=== PATIENT | female | born 1980 | race African-American/Black ===

== ENCOUNTER 2016-12-19 01:27 | Emergency (ER) | payer MEDICAID ==
[~2016-12-19] VITALS: Ht 160 cm; Wt 83.4 kg
[~2016-12-19 01:27] MED LIST: PREN1TAB27 PO
[2016-12-19 01:28] VITALS: BP 174/125
[2016-12-19] MEDS ORDERED: BACITRACIN ZINC OINT 500U/GM, 0.9 GM ONE (01:51)
[2016-12-19] MEDS ORDERED: SULFAMETH./TRIMETHOPRIM DS 800MG/160MG TABLET ONE (02:07)
[2016-12-19] MEDS ORDERED: IBUPROFEN 200 MG TABLET ONE (02:07)
[2016-12-19] MEDS ORDERED: SUBOXONE PO (02:15)
[2016-12-19] MEDS ORDERED: SULFAMETH./TRIMETHOPRIM DS 800MG/160MG TABLET PO ONE (02:30)
[2016-12-19] MEDS ORDERED: IBUPROFEN 200 MG TABLET PO ONE (02:30)
== END 2016-12-19 03:03 ==
LOC: ED 02:44
DX: S41.111D Laceration without foreign body of right upper arm, subsequent encounter (principal); L08.9 Local infection of the skin and subcutaneous tissue, unspecified; X58.XXXD Exposure to other specified factors, subsequent encounter; Y92.89 Other specified places as the place of occurrence of the external cause; Y99.8 Other external cause status
CPT/HCPCS: 99283

== ENCOUNTER 2018-11-01 02:16 | Emergency (ER) | payer MEDICAID ==
[~2018-11-01] VITALS: Ht 170.2 cm; Wt 72.0 kg
[~2018-11-01 02:16] MED LIST changes: +SUBOXONE PO
[2018-11-01 02:19] VITALS: BP 164/102
--- NOTE | 2018-11-01 02:36 | NUR ---
CALLED [facility] ABOUT PT. AND THEY REPORT TO TREAT PT. UNLESS OB CONCERNS ARISE.
--- NOTE | 2018-11-01 02:55 | NUR ---
PT IN [facility]; AWAITING ERP. PT FAMILY AT .
--- NOTE | 2018-11-01 03:28 | NUR ---
PT CAME OUT OF ROOM INTO PHYSICIAN AREA AND STATES "I'M LEAVING. I'M TIRED OF WAITING TO BE SEEN. I'M GONNA GO TO ANOTHER HOSPITAL." PT ENCOURAGED TO STAY, BUT PT STATES "I'M NOT WAITING ANY LONGER". PT AND FAMILY WALKED OUT INTO LOBBY AND LEFT.
== END 2018-11-01 03:36 | disposition left against medical advice (07) ==
LOC: ED 03:26
DX: K12.2 Cellulitis and abscess of mouth (principal); Z53.21 Procedure and treatment not carried out due to patient leaving prior to being seen by health care provider

== ENCOUNTER 2018-11-01 08:16 | Emergency (ER) | payer MEDICAID ==
[~2018-11-01] VITALS: Ht 170.2 cm; Wt 72.6 kg
--- NOTE | 2018-11-01 08:31 | NUR ---
LABOR AND DELIVERY AT BEDSIDE FOR HEART TONES.
[2018-11-01] MEDS ORDERED: BENZOCAINE AEROSOL SPRAY 20%, 60ML ONE (08:41)
[2018-11-01] MEDS ORDERED: CETACAINE 50ML TP ONE (09:00)
[2018-11-01 09:12] VITALS: BP 188/105
--- NOTE | 2018-11-01 09:15 | NUR ---
PT TRANSPORTED VIA WHEELCHAIR IN NAD TO L&D FOR FURTHER EVAL
--- NOTE | 2018-11-01 09:43 | NUR ---
prior to transfer up to L&D, patient ambulating safely in room, POC discussed with Jerel Quinones, L&D unit aware of patient's HTN, patient's child helped by Jerel Quinones and DELISA Bennett.
== END 2018-11-01 09:44 | disposition home or self-care (01) ==
LOC: ED 09:38
DX: O9A.212 Injury, poisoning and certain other consequences of external causes complicating pregnancy, second trimester (principal); K04.7 Periapical abscess without sinus; O16.2 Unspecified maternal hypertension, second trimester; O99.332 Smoking (tobacco) complicating pregnancy, second trimester; Z3A.23 23 weeks gestation of pregnancy
CPT/HCPCS: 41800; 99283

== ENCOUNTER 2018-11-01 09:31 | Outpatient (CLI) | payer MEDICAID ==
[2018-11-01 10:18] LABS: MICROSCOPIC INDICATED
[2018-11-01 10:51] LABS: AMPHETAMINE SCREEN, URINE Positive (Negative); BARBITURATE SCREEN, URINE Negative (Negative); BENZODIAZEPINE SCREEN, URINE Negative (Negative); CANNABINOID SCREEN, URINE Negative (Negative); COCAINE SCREEN, URINE Negative (Negative); METHADONE SCREEN, URINE Negative (Negative); OPIATE SCREEN, URINE Negative (Negative)
== END 2018-11-01 10:00 | disposition home or self-care (01) ==
LOC: LDOP 09:31
PROVIDERS: ATTEND Obstetrics & Gynecology
DX: O10.912 Unspecified pre-existing hypertension complicating pregnancy, second trimester (principal); S02.5XXD Fracture of tooth (traumatic), subsequent encounter for fracture with routine healing; Z3A.23 23 weeks gestation of pregnancy; X58.XXXD Exposure to other specified factors, subsequent encounter
CPT/HCPCS: 80307; 81001; 87086

== ENCOUNTER 2018-12-31 19:01 | Emergency (ER) | payer MEDICAID ==
[2018-12-31] MEDS ORDERED: OXYTOCIN 30U/ 0.9% NaCL 500ML 500 ML ONE (19:13)
[2018-12-31] MEDS ORDERED: MISOPROSTOL 200 MCG TABLET ONE (19:22)
== END 2018-12-31 19:17 | disposition home or self-care (01) ==
LOC: ED 19:11
DX: O34.219 Maternal care for unspecified type scar from previous cesarean delivery (principal); Z3A.33 33 weeks gestation of pregnancy; Z37.0 Single live birth
CPT/HCPCS: 99283

== ENCOUNTER 2018-12-31 19:31 | Inpatient (IN) | payer MEDICAID ==
[~2018-12-31] VITALS: Ht 170.2 cm; Wt 70.9 kg
[2018-12-31] MEDS: OXYTOCIN 30U/ 0.9% NaCL 500ML 500 ML IV SCH ×5 (19:33→23:51)
[2018-12-31] MEDS: LACTATED RINGERS 1,000 ML IV SCH (19:41)
[2018-12-31] MEDS ORDERED: METHYLERGONOVINE 0.2 MG/ML IM PRN (20:00)
[2018-12-31] MEDS ORDERED: MISOPROSTOL 200 MCG TABLET PR PRN (20:00)
[2018-12-31] MEDS ORDERED: LACTATED RINGERS 1,000 ML IVBOLUS PRN (20:00)
[2018-12-31] MEDS ORDERED: LABETALOL 5MG/ML, 20ML IVPush STA (20:05)
[2018-12-31 20:23] LABS: ALANINE AMINOTRANSFERASE 19 U/L (12-78); ALBUMIN 2.3 g/dL (3.4-5.0); ANION GAP 7 mmol/L (5-15); CALCIUM 7.8 mg/dL (8.5-10.1); CHLORIDE 114 mmol/L (98-107)
[2018-12-31 20:26] LABS: ALKALINE PHOSPHATASE 198 U/L (45-117); BILIRUBIN,TOTAL 0.2 mg/dL (0.2-1.0); CREATININE 0.81 mg/dL (0.55-1.02); TOTAL PROTEIN 5.8 g/dL (6.4-8.2)
[2018-12-31 20:52] LABS: MEAN CORPUSCULAR HEMOGLOBIN 25.4 pg (27.0-34.8); MEAN CORPUSCULAR HGB CONC 32.2 g/dL (32.4-35.8); MEAN CORPUSCULAR VOLUME 78.9 fL (80-100); PLATELET COUNT 200 x10^3/uL (130-400); RED BLOOD COUNT 3.94 x10^6/uL (3.82-5.3); RED CELL DISTRIBUTION WIDTH 14.5 % (9.6-15.2)
[2018-12-31 20:53] LABS: MD YES
[2018-12-31 20:56] LABS: BANDS%(MANUAL) 1 % (0-7); EOS% (MANUAL) 1 % (1-7); LYMPH#(MANUAL) 1.88 x10^3/uL (1-3.4); LYMPHS% (MANUAL) 19 % (22-44); MONOS% (MANUAL) 5 % (2-9); SEG#(MANUAL) 7.33 x10^3/uL (1.8-6.8); SEGS% (MANUAL) 74 % (42-75)
[2018-12-31] MEDS ORDERED: HYDROcodone/APAP 5/325 TABLET ONE (20:56)
[2018-12-31 20:57] LABS: CRENATED 1+; POLYCHROMASIA 1+
[2018-12-31] MEDS ORDERED: IBUPROFEN 600 MG TABLET ONE (20:57)
[2018-12-31] MEDS: HYDROcodone/APAP 5/325 TABLET PO PRN (20:59)
[2018-12-31] MEDS: IBUPROFEN 600 MG TABLET PO PRN (20:59)
[2018-12-31 21:01] LABS: HYPOCHROMIA 1+; OVALOCYTES 1+; SCHISTOCYTES 1+
[2018-12-31 21:05] LABS: <PLATELET ESTIMATE> ADEQUATE; LARGE PLATELETS 1+; TEAR DROPS 1+
[2018-12-31] MEDS ORDERED: OXYTOCIN 30U/ 0.9% NaCL 500ML 500 ML ONE (21:29)
[2018-12-31] MEDS ORDERED: LABETALOL 5MG/ML, 20ML IVPush PRN ×3 (21:30)
[2018-12-31] MEDS ORDERED: hydrALAzine 20 MG/ML, 1ML IVPush ONE (21:30)
[2019-01-01] VITALS (15 sets, daily range): BP systolic 109–150; BP diastolic 64–90
[2019-01-01] MEDS: OXYTOCIN 30U/ 0.9% NaCL 500ML 500 ML IV SCH ×3 (01:17→15:33)
[2019-01-01 03:36] LABS: MEAN CORPUSCULAR HEMOGLOBIN 25.2 pg (27.0-34.8); MEAN CORPUSCULAR HGB CONC 32.5 g/dL (32.4-35.8); MEAN CORPUSCULAR VOLUME 77.5 fL (80-100); MEAN PLATELET VOLUME 9.1 fL (7.4-10.4); PLATELET COUNT 148 x10^3/uL (130-400); RED BLOOD COUNT 2.56 x10^6/uL (3.82-5.3); RED CELL DISTRIBUTION WIDTH 14.8 % (9.6-15.2)
[2019-01-01] MEDS: LACTATED RINGERS 1,000 ML IV SCH ×3 (03:41→19:41)
[2019-01-01 04:12] LABS: BASOPHILS # (AUTO) 0.02 x10^3/uL (0-0.1); BASOPHILS % (AUTO) 0 % (0-1); EOSINOPHILS # (AUTO) 0.11 x10^3/uL (0-0.4); EOSINOPHILS % (AUTO) 1 % (1-7); LYMPHOCYTES # (AUTO) 1.75 x10^3/uL (1-3.4); LYMPHOCYTES % (AUTO) 21 % (22-44); MD SCAN; MONOCYTES # (AUTO) 0.61 x10^3/uL (0.2-0.8); MONOCYTES % (AUTO) 7 % (2-9); NEUTROPHILS # (AUTO) 5.85 x10^3/uL (1.8-6.8); NEUTROPHILS % (AUTO) 70 % (42-75)
[2019-01-01] MEDS: IBUPROFEN 600 MG TABLET PO PRN ×3 (08:18→20:55)
[2019-01-01] MEDS: PRENATAL VIT/IRON/FA 1 EACH TABLET PO SCH (08:19)
[2019-01-01] MEDS: FERROUS SULFATE 325 MG TABLET PO SCH ×2 (08:19→19:29)
[2019-01-01] MEDS: DOCUSATE 100 MG CAPSULE PO SCH ×2 (08:19→20:51)
[2019-01-01 12:42] LABS: MEAN CORPUSCULAR HEMOGLOBIN 26.2 pg (27.0-34.8); MEAN CORPUSCULAR VOLUME 79.4 fL (80-100); MEAN PLATELET VOLUME 11.1 fL (7.4-10.4); PLATELET COUNT 147 x10^3/uL (130-400); RED BLOOD COUNT 3.08 x10^6/uL (3.82-5.3); RED CELL DISTRIBUTION WIDTH 15.1 % (9.6-15.2)
[2019-01-01 13:20] LABS: BASOPHILS # (AUTO) 0.04 x10^3/uL (0-0.1); BASOPHILS % (AUTO) 1 % (0-1); EOSINOPHILS # (AUTO) 0.04 x10^3/uL (0-0.4); EOSINOPHILS % (AUTO) 1 % (1-7); LYMPHOCYTES # (AUTO) 2.06 x10^3/uL (1-3.4); LYMPHOCYTES % (AUTO) 25 % (22-44); MD SCAN; MONOCYTES # (AUTO) 0.57 x10^3/uL (0.2-0.8); MONOCYTES % (AUTO) 7 % (2-9); NEUTROPHILS % (AUTO) 68 % (42-75)
[2019-01-02] MEDS: OXYTOCIN 30U/ 0.9% NaCL 500ML 500 ML IV SCH (01:33)
[2019-01-02] MEDS: LACTATED RINGERS 1,000 ML IV SCH (03:41)
[2019-01-02] MEDS: HYDROcodone/APAP 5/325 TABLET PO PRN ×3 (05:12→14:17)
[2019-01-02 08:40] VITALS: BP 136/82
[2019-01-02] MEDS: FERROUS SULFATE 325 MG TABLET PO SCH (09:12)
[2019-01-02] MEDS: IBUPROFEN 600 MG TABLET PO PRN (09:12)
[2019-01-02] MEDS: PRENATAL VIT/IRON/FA 1 EACH TABLET PO SCH (09:12)
[2019-01-02] MEDS: DOCUSATE 100 MG CAPSULE PO SCH (09:12)
[2019-01-02] MEDS ORDERED: DOCU-131 PO (12:32)
[2019-01-02] MEDS ORDERED: IBUP-1222 PO (12:32)
[2019-01-02] MEDS ORDERED: FERR325T5 PO (12:33)
== END 2019-01-02 15:15 | disposition home or self-care (01) | DRG 776 ==
LOC: LDIP 19:31 → 2NW 23:55
PROVIDERS: ADMIT Obstetrics & Gynecology; ATTEND Obstetrics & Gynecology
PROC: 10E0XZZ Delivery of Products of Conception, External Approach (ICD-10-PCS; principal; 2018-12-31)
DX: O72.1 Other immediate postpartum hemorrhage (principal); O99.325 Drug use complicating the puerperium; D62 Acute posthemorrhagic anemia; O16.5 Unspecified maternal hypertension, complicating the puerperium; F15.90 Other stimulant use, unspecified, uncomplicated; O99.03 Anemia complicating the puerperium
CPT/HCPCS: 36415; 59414; 80053; 84550; 85025; 86592; 86762; 86850; 86900; 86923; 87340; 87806; G0378; G0475; J2590; P9016

== ENCOUNTER 2020-03-22 22:57 | Inpatient (IN) | payer MEDICAID ==
[~2020-03-22] VITALS: Ht 170.2 cm; Wt 70.0 kg
[2020-03-22] MEDS: PLEASE ENTER HEIGHT AND WEIGHT MC SCH (02:45)
[~2020-03-22 22:57] MED LIST changes: +DOCU-131 PO; +FERR325T5 PO; +IBUP-1222 PO
[2020-03-22] MEDS ORDERED: OXYTOCIN 30U/ 0.9% NaCL 500ML 500 ML ONE (23:03)
[2020-03-22] MEDS ORDERED: NEWBORN KIT ONE (23:04)
[2020-03-22] MEDS ORDERED: MISOPROSTOL 200 MCG TABLET ONE (23:04)
[2020-03-22] MEDS ORDERED: LIDOCAINE 1%, 20ML ONE (23:04)
[2020-03-22] MEDS ORDERED: D5%-LACTATED RINGERS 1,000 ML IV SCH (23:05)
[2020-03-22] MEDS ORDERED: OXYTOCIN 30U/ 0.9% NaCL 500ML 500 ML IV ONE (23:05)
[2020-03-22] MEDS ORDERED: LACTATED RINGERS 1,000 ML IV SCH (23:05)
[2020-03-22 23:27] LABS: BASOPHILS # (AUTO) 0.02 x10^3/uL (0-0.1); BASOPHILS % (AUTO) 0 % (0-1); EOSINOPHILS # (AUTO) 0.04 x10^3/uL (0-0.4); EOSINOPHILS % (AUTO) 0 % (1-7); LYMPHOCYTES # (AUTO) 1.55 x10^3/uL (1-3.4); LYMPHOCYTES % (AUTO) 16 % (22-44); MD NO; MEAN CORPUSCULAR HEMOGLOBIN 21.7 pg (27.0-34.8); MEAN CORPUSCULAR HGB CONC 30.8 g/dL (32.4-35.8); MEAN CORPUSCULAR VOLUME 70.3 fL (80-100); MEAN PLATELET VOLUME 10.3 fL (7.4-10.4); MONOCYTES # (AUTO) 0.42 x10^3/uL (0.2-0.8); MONOCYTES % (AUTO) 4 % (2-9); NEUTROPHILS # (AUTO) 7.96 x10^3/uL (1.8-6.8); NEUTROPHILS % (AUTO) 80 % (42-75); PLATELET COUNT 234 x10^3/uL (130-400); RED BLOOD COUNT 4.36 x10^6/uL (3.82-5.3); RED CELL DISTRIBUTION WIDTH 18.4 % (9.6-15.2)
[2020-03-22] MEDS ORDERED: METOCLOPRAMIDE 5 MG/ML, 2ML IVPush PRN (23:30)
[2020-03-22] MEDS ORDERED: TERBUTALINE 1 MG/ML, 1ML IVPush PRN (23:30)
[2020-03-22] MEDS ORDERED: SODIUM CHLORIDE FLUSH 10ML SYR IVF PRN (23:30)
[2020-03-22] MEDS ORDERED: ONDANSETRON 2MG/ML, 2ML IVPush PRN (23:30)
[2020-03-22] MEDS ORDERED: CALCIUM CARBONATE 500 MG TAB.CHEW PO PRN (23:30)
[2020-03-22] MEDS ORDERED: SODIUM CITRATE/CITRIC ACID 30 ML UDC PO PRN (23:30)
[2020-03-22] MEDS ORDERED: TERBUTALINE 1 MG/ML, 1ML SQ PRN (23:30)
[2020-03-22] MEDS ORDERED: ALUMINUM/MAG/SIMETHICONE 30 ML UDC PO PRN (23:30)
[2020-03-22 23:37] LABS: ALBUMIN 2.2 g/dL (3.4-5.0); ANION GAP 6 mmol/L (5-15); CALCIUM 8.1 mg/dL (8.5-10.1); CHLORIDE 111 mmol/L (98-107)
[2020-03-22 23:42] LABS: ALANINE AMINOTRANSFERASE 17 U/L (12-78); ALKALINE PHOSPHATASE 146 U/L (45-117); BILIRUBIN, DIRECT 0.2 mg/dL (0.1-0.2); BILIRUBIN,TOTAL 0.4 mg/dL (0.2-1.0); CREATININE 0.76 mg/dL (0.55-1.02); TOTAL PROTEIN 6.3 g/dL (6.4-8.2)
[2020-03-23] MEDS ORDERED: METHYLERGONOVINE 0.2 MG/ML IM PRN (00:30)
[2020-03-23] MEDS ORDERED: MISOPROSTOL 200 MCG TABLET PR PRN (00:30)
[2020-03-23] MEDS ORDERED: BISACODYL 10 MG SUPP PR PRN (00:30)
[2020-03-23] MEDS ORDERED: ACETAMINOPHEN 325 MG TABLET PO PRN (00:30)
[2020-03-23] MEDS ORDERED: GLYCERIN ADULT SUPP PR PRN (00:30)
[2020-03-23] MEDS ORDERED: ONDANSETRON 2MG/ML, 2ML IV PRN (00:30)
[2020-03-23] MEDS ORDERED: METOCLOPRAMIDE 5 MG/ML, 2ML IV PRN (00:30)
[2020-03-23] MEDS ORDERED: DOCUSATE 100 MG CAPSULE PO PRN (00:30)
[2020-03-23] MEDS ORDERED: SIMETHICONE 80 MG CHEW TAB PO PRN (00:30)
[2020-03-23] MEDS ORDERED: OXYTOCIN 30U/ 0.9% NaCL 500ML 500 ML ONE (00:36)
[2020-03-23] MEDS ORDERED: IBUPROFEN 600 MG TABLET ONE (00:53)
[2020-03-23] MEDS ORDERED: LABETALOL 100 MG TABLET ONE ×2 (00:57→01:00)
[2020-03-23] MEDS: IBUPROFEN 600 MG TABLET PO PRN ×3 (01:01→19:33)
[2020-03-23] MEDS: LABETALOL 100 MG TABLET PO SCH ×3 (01:01→19:34)
[2020-03-23 01:57] LABS: AMPHETAMINE SCREEN, URINE Positive (Negative); BARBITURATE SCREEN, URINE Negative (Negative); BENZODIAZEPINE SCREEN, URINE Negative (Negative); CANNABINOID SCREEN, URINE Negative (Negative); COCAINE SCREEN, URINE Negative (Negative); METHADONE SCREEN, URINE Negative (Negative); OPIATE SCREEN, URINE Negative (Negative)
[2020-03-23 02:45] VITALS: BP 136/88
[2020-03-23] MEDS: OXYTOCIN 30U/ 0.9% NaCL 500ML 500 ML IV SCH ×3 (02:45→20:17)
[2020-03-23 06:47] LABS: BASOPHILS # (AUTO) 0.03 x10^3/uL (0-0.1); BASOPHILS % (AUTO) 0 % (0-1); EOSINOPHILS # (AUTO) 0.04 x10^3/uL (0-0.4); EOSINOPHILS % (AUTO) 1 % (1-7); LYMPHOCYTES # (AUTO) 1.32 x10^3/uL (1-3.4); LYMPHOCYTES % (AUTO) 16 % (22-44); MD NO; MEAN CORPUSCULAR HEMOGLOBIN 21.7 pg (27.0-34.8); MEAN CORPUSCULAR HGB CONC 30.6 g/dL (32.4-35.8); MEAN CORPUSCULAR VOLUME 70.8 fL (80-100); MEAN PLATELET VOLUME 9.4 fL (7.4-10.4); MONOCYTES # (AUTO) 0.42 x10^3/uL (0.2-0.8); MONOCYTES % (AUTO) 5 % (2-9); NEUTROPHILS # (AUTO) 6.48 x10^3/uL (1.8-6.8); NEUTROPHILS % (AUTO) 78 % (42-75); PLATELET COUNT 229 x10^3/uL (130-400); RED BLOOD COUNT 3.96 x10^6/uL (3.82-5.3); RED CELL DISTRIBUTION WIDTH 17.9 % (9.6-15.2)
[2020-03-23] MEDS: PLEASE ENTER HEIGHT AND WEIGHT MC SCH ×2 (07:45→15:45)
[2020-03-23 08:00] VITALS: BP 148/79
[2020-03-23] MEDS: PRENATAL VIT/IRON/FA 1 EACH TABLET PO SCH (09:00)
[2020-03-23 13:10] VITALS: BP 133/79
[2020-03-23 19:30] VITALS: BP 144/64
[2020-03-24 00:25] VITALS: BP 142/79
[2020-03-24 03:22] VITALS: BP 131/81
[2020-03-24] MEDS: OXYTOCIN 30U/ 0.9% NaCL 500ML 500 ML IV SCH (06:17)
[2020-03-24 08:55] VITALS: BP 134/64
[2020-03-24] MEDS: LABETALOL 100 MG TABLET PO SCH ×2 (12:53→19:25)
[2020-03-24] MEDS: IBUPROFEN 600 MG TABLET PO PRN ×2 (12:54→19:25)
[2020-03-24] MEDS: PRENATAL VIT/IRON/FA 1 EACH TABLET PO SCH (12:54)
== END 2020-03-24 19:37 | disposition home or self-care (01) | DRG 807 ==
LOC: LDOP 22:57 → LDIP 23:11 → 2NW 03-23 04:05
PROVIDERS: ADMIT Obstetrics & Gynecology; ATTEND Obstetrics & Gynecology
PROC: 10E0XZZ Delivery of Products of Conception, External Approach (ICD-10-PCS; principal; 2020-03-22)
DX: O99.324 Drug use complicating childbirth (principal); Z37.0 Single live birth; Z3A.35 35 weeks gestation of pregnancy; Z88.8 Allergy status to other drugs, medicaments and biological substances; F15.90 Other stimulant use, unspecified, uncomplicated
CPT/HCPCS: 36415; 80053; 80307; 82248; 82803; 84550; 85025; 86592; 86762; 86850; 86900; 87340; 87806; G0378; G0475; J2590; J7120

== ENCOUNTER 2020-04-07 04:57 | Emergency (ER) | payer MEDICAID ==
[~2020-04-07] VITALS: Ht 170.2 cm; Wt 68.7 kg
[2020-04-07 04:59] VITALS: BP 176/106
--- NOTE | 2020-04-07 05:19 | NUR ---
pt denied si and stated "she is just sad and crying a lot latetly"
== END 2020-04-07 07:17 ==
LOC: ED 07:11
DX: F15.122 Other stimulant abuse with intoxication with perceptual disturbance (principal)
CPT/HCPCS: 99283

== ENCOUNTER 2021-01-23 02:33 | Outpatient (CLI) | payer MEDICAID ==
[~2021-01-23] VITALS: Ht 170.2 cm; Wt 65.8 kg
[2021-01-23 03:14] LABS: MICROSCOPIC AUTO
[2021-01-23 03:19] VITALS: BP 142/79
[2021-01-23 03:23] LABS: AMPHETAMINE SCREEN, URINE Negative (Negative); BARBITURATE SCREEN, URINE Negative (Negative); BENZODIAZEPINE SCREEN, URINE Negative (Negative); CANNABINOID SCREEN, URINE Positive (Negative); COCAINE SCREEN, URINE Negative (Negative); METHADONE SCREEN, URINE Negative (Negative); OPIATE SCREEN, URINE Negative (Negative)
[2021-01-23 03:48] LABS: BASOPHILS % (AUTO) 1 % (0-1); EOSINOPHILS % (AUTO) 1 % (1-7); LYMPHOCYTES % (AUTO) 20 % (22-44); MEAN CORPUSCULAR HEMOGLOBIN 25.5 pg (27.0-34.8); MEAN CORPUSCULAR HGB CONC 32.8 g/dL (32.4-35.8); MEAN PLATELET VOLUME 8.5 fL (7.4-10.4); MONOCYTES % (AUTO) 7 % (2-9); NEUTROPHILS % (AUTO) 71 % (42-75); PLATELET COUNT 278 x10^3/uL (130-400); RED BLOOD COUNT 3.55 x10^6/uL (3.82-5.3); RED CELL DISTRIBUTION WIDTH 16.2 % (9.6-15.2)
[2021-01-23 03:54] LABS: ALANINE AMINOTRANSFERASE 13 U/L (12-78); ALBUMIN 2.4 g/dL (3.4-5.0); ANION GAP 7 mmol/L (5-15); CALCIUM 8.4 mg/dL (8.5-10.1); CHLORIDE 111 mmol/L (98-107); CREATININE 0.68 mg/dL (0.55-1.02)
[2021-01-23 03:56] LABS: ALKALINE PHOSPHATASE 75 U/L (45-117); TOTAL PROTEIN 6.2 g/dL (6.4-8.2)
[2021-01-23 04:22] LABS: BILIRUBIN, DIRECT < 0.1 mg/dL (0.1-0.2); BILIRUBIN,TOTAL 0.1 mg/dL (0.2-1.0)
[2021-01-23 04:23] LABS: CREATININE,URINE RANDOM 90.9 mg/dL
[2021-01-23] MEDS ORDERED: TERC45CR2 PV (04:57)
[2021-01-23] MEDS ORDERED: LABE100T6 PO (04:57)
[2021-01-23] MEDS ORDERED: NITR100C56 PO (04:57)
== END 2021-01-23 06:08 | disposition home or self-care (01) ==
LOC: LDOP 02:33
PROVIDERS: ATTEND Obstetrics & Gynecology
DX: O09.522 Supervision of elderly multigravida, second trimester (principal); O16.2 Unspecified maternal hypertension, second trimester; O44.02 Complete placenta previa NOS or without hemorrhage, second trimester; N39.0 Urinary tract infection, site not specified; B37.9 Candidiasis, unspecified; Z3A.17 17 weeks gestation of pregnancy
CPT/HCPCS: 36415; 76805; 80053; 80307; 81001; 82248; 82570; 84156; 84550; 85025; 86592; 86762; 86803; 86850; 86900; 87077; 87086; 87186; 87340; 87806; 99211; G0463; G0475

== ENCOUNTER 2021-03-06 00:07 | Outpatient (CLI) | payer MEDICAID ==
[~2021-03-06 00:07] MED LIST changes: +LABE100T6 PO; +NITR100C56 PO; +TERC45CR2 PV
== END 2021-03-06 01:33 | disposition home or self-care (01) ==
LOC: LDOP 00:07
PROVIDERS: ATTEND Obstetrics & Gynecology
DX: Z02.9 Encounter for administrative examinations, unspecified (principal)

== ENCOUNTER 2021-04-06 15:51 | Outpatient (CLI) | payer MEDICAID ==
[~2021-04-06] VITALS: Ht 170.2 cm; Wt 69.0 kg
[2021-04-06 16:36] LABS: AMPHETAMINE SCREEN, URINE Negative (Negative); BARBITURATE SCREEN, URINE Negative (Negative); BENZODIAZEPINE SCREEN, URINE Negative (Negative); CANNABINOID SCREEN, URINE Positive (Negative); COCAINE SCREEN, URINE Negative (Negative); METHADONE SCREEN, URINE Negative (Negative); OPIATE SCREEN, URINE Negative (Negative)
[2021-04-06 17:00] VITALS: BP 109/53
[2021-04-06 17:08] LABS: MICROSCOPIC INDICATED
[2021-04-06] MEDS ORDERED: PREN1TAB10 PO (17:30)
[2021-04-06] MEDS ORDERED: FERR324T5 PO (17:30)
== END 2021-04-06 17:45 | disposition home or self-care (01) ==
LOC: LDOP 15:51
PROVIDERS: ATTEND Obstetrics & Gynecology
DX: O09.522 Supervision of elderly multigravida, second trimester (principal); R10.9 Unspecified abdominal pain; Z3A.27 27 weeks gestation of pregnancy
CPT/HCPCS: 80307; 81001; 87086; 99211; G0463

== ENCOUNTER 2021-06-16 02:43 | Inpatient (IN) | payer MEDICAID, OTHER ==
[~2021-06-16] VITALS: Ht 170.2 cm; Wt 80.9 kg
[~2021-06-16 02:43] MED LIST changes: +FERR324T5 PO; +PREN1TAB10 PO
[2021-06-16] MEDS ORDERED: MISOPROSTOL 25 MCG TABLET VG PRN (09:30)
[2021-06-16] MEDS ORDERED: FENTANYL PF 100 MCG/2ML IV PRN (09:30)
[2021-06-16] MEDS ORDERED: FENTANYL PF 100 MCG/2ML IVPush PRN (09:30)
[2021-06-16] MEDS ORDERED: OXYTOCIN 30U/ 0.9% NaCL 500ML 500 ML IV ONE (09:30)
[2021-06-16] MEDS ORDERED: METOCLOPRAMIDE 5 MG/ML, 2ML IVPush PRN (09:30)
[2021-06-16] MEDS ORDERED: ONDANSETRON 2MG/ML, 2ML IVPush PRN (09:30)
[2021-06-16] MEDS ORDERED: TERBUTALINE 1 MG/ML, 1ML IVPush PRN (09:30)
[2021-06-16] MEDS ORDERED: OXYTOCIN 30U/ 0.9% NaCL 500ML 500 ML IV PRN (09:30)
[2021-06-16] MEDS: LACTATED RINGERS 1,000 ML IV SCH ×3 (09:30→23:28)
[2021-06-16] MEDS ORDERED: SODIUM CITRATE/CITRIC ACID 30 ML UDC PO PRN (09:30)
[2021-06-16] MEDS ORDERED: CALCIUM CARBONATE 500 MG TAB.CHEW PO PRN (09:30)
[2021-06-16] MEDS ORDERED: TERBUTALINE 1 MG/ML, 1ML SQ PRN (09:30)
[2021-06-16 09:32] LABS: BASOPHILS % (AUTO) 1 % (0-1); EOSINOPHILS % (AUTO) 1 % (1-7); LYMPHOCYTES % (AUTO) 26 % (22-44); MEAN CORPUSCULAR HEMOGLOBIN 28.3 pg (27.0-34.8); MEAN CORPUSCULAR HGB CONC 33.7 g/dL (32.4-35.8); MEAN PLATELET VOLUME 9.5 fL (7.4-10.4); MONOCYTES % (AUTO) 8 % (2-9); NEUTROPHILS % (AUTO) 64 % (42-75); PLATELET COUNT 172 x10^3/uL (130-400); RED BLOOD COUNT 4.85 x10^6/uL (3.82-5.3); RED CELL DISTRIBUTION WIDTH 17.6 % (9.6-15.2)
[2021-06-16 09:42] LABS: MICROSCOPIC INDICATED
[2021-06-16] MEDS ORDERED: NEWBORN KIT ONE (09:45)
[2021-06-16 09:47] LABS: ALANINE AMINOTRANSFERASE 12 U/L (12-78); ALBUMIN 2.8 g/dL (3.4-5.0); ANION GAP 8 mmol/L (5-15); CALCIUM 8.8 mg/dL (8.5-10.1); CHLORIDE 108 mmol/L (98-107); CREATININE 0.81 mg/dL (0.55-1.02)
[2021-06-16 09:48] LABS: ALKALINE PHOSPHATASE 121 U/L (45-117); BILIRUBIN,TOTAL 0.4 mg/dL (0.2-1.0); TOTAL PROTEIN 7.5 g/dL (6.4-8.2)
[2021-06-16 09:50] LABS: BARBITURATE SCREEN, URINE Negative (Negative); BENZODIAZEPINE SCREEN, URINE Negative (Negative); CANNABINOID SCREEN, URINE Negative (Negative); COCAINE SCREEN, URINE Negative (Negative); METHADONE SCREEN, URINE Negative (Negative)
[2021-06-16 09:52] LABS: AMPHETAMINE SCREEN, URINE Negative (Negative); OPIATE SCREEN, URINE Negative (Negative)
[2021-06-16] MEDS: D5%-LACTATED RINGERS 1,000 ML IV SCH ×2 (10:00→18:00)
[2021-06-16] MEDS ORDERED: PENICILLIN GK 5,000,000 UNITS in DEXTROSE 5% 100 ML IVPB ONE (10:00)
[2021-06-16] MEDS ORDERED: BUPIVACAINE 0.25% ONE ×2 (12:41→15:29)
[2021-06-16] MEDS ORDERED: FENTANYL/BUPIV./NS/PF 250 ML EPIDCONT ONE (12:41)
[2021-06-16] MEDS ORDERED: FENTANYL/BUPIV./NS/PF 250 ML EPIDCONT SCH (14:30)
[2021-06-16] MEDS ORDERED: EPHEDRINE 50 MG/ML, 1ML IVPush PRN (14:30)
[2021-06-16] MEDS ORDERED: LACTATED RINGERS 1,000 ML IVBOLUS PRN (14:30)
[2021-06-16] MEDS ORDERED: LACTATED RINGERS 1,000 ML IV SCH (14:30)
[2021-06-16] MEDS ORDERED: PENICILLIN GK 2,500,000 UNITS in DEXTROSE 5% 100 ML IVPB SCH (15:00)
[2021-06-16] MEDS ORDERED: SIMETHICONE 80 MG CHEW TAB PO PRN (16:30)
[2021-06-16] MEDS ORDERED: ACETAMINOPHEN 325 MG TABLET PO PRN ×2 (16:30)
[2021-06-16] MEDS ORDERED: MISOPROSTOL 200 MCG TABLET PR PRN (16:30)
[2021-06-16] MEDS ORDERED: CARBOPROST TROMETHAMINE 250 MCG/ML, 1ML IM PRN (16:30)
[2021-06-16] MEDS: IBUPROFEN 800 MG TABLET PO PRN (17:25)
[2021-06-16] MEDS: OXYTOCIN 30U/ 0.9% NaCL 500ML 500 ML IV SCH (17:25)
[2021-06-16] MEDS ORDERED: LABETALOL 100 MG TABLET ONE (17:54)
[2021-06-16 18:00] VITALS: BP 116/69
[2021-06-16] MEDS: LABETALOL 100 MG TABLET PO SCH (18:00)
[2021-06-16 19:55] VITALS: BP 134/83
[2021-06-16] MEDS: DOCUSATE 100 MG CAPSULE PO PRN (19:56)
[2021-06-17 01:30] VITALS: BP 108/63
[2021-06-17 01:48] LABS: BASOPHILS % (AUTO) 1 % (0-1); EOSINOPHILS % (AUTO) 1 % (1-7); LYMPHOCYTES % (AUTO) 18 % (22-44); MEAN CORPUSCULAR HEMOGLOBIN 28.3 pg (27.0-34.8); MEAN CORPUSCULAR HGB CONC 33.5 g/dL (32.4-35.8); MEAN PLATELET VOLUME 9.1 fL (7.4-10.4); MONOCYTES % (AUTO) 5 % (2-9); NEUTROPHILS % (AUTO) 76 % (42-75); PLATELET COUNT 149 x10^3/uL (130-400); RED BLOOD COUNT 3.97 x10^6/uL (3.82-5.3); RED CELL DISTRIBUTION WIDTH 17.3 % (9.6-15.2)
[2021-06-17] MEDS: D5%-LACTATED RINGERS 1,000 ML IV SCH ×3 (02:00→18:00)
[2021-06-17] MEDS: OXYTOCIN 30U/ 0.9% NaCL 500ML 500 ML IV SCH ×2 (02:30→12:30)
[2021-06-17 05:00] VITALS: BP 132/82
[2021-06-17] MEDS: IBUPROFEN 800 MG TABLET PO PRN ×2 (05:09→15:18)
[2021-06-17] MEDS: LABETALOL 100 MG TABLET PO SCH ×2 (08:00→18:00)
[2021-06-17] MEDS ORDERED: PRENATAL VIT/IRON/FA 1 EACH TABLET PO SCH (09:00)
[2021-06-17 09:45] VITALS: BP 121/81
[2021-06-17] MEDS: LACTATED RINGERS 1,000 ML IV SCH ×2 (10:00→18:00)
[2021-06-17] MEDS: DOCUSATE 100 MG CAPSULE PO PRN (10:08)
[2021-06-17 14:30] VITALS: BP 116/75
== END 2021-06-17 19:00 | disposition home or self-care (01) | DRG 807 ==
LOC: LDIP 08:41 → 2NW 18:26
PROVIDERS: ADMIT Obstetrics & Gynecology; ATTEND Obstetrics & Gynecology
PROC: 10E0XZZ Delivery of Products of Conception, External Approach (ICD-10-PCS; principal; 2021-06-16)
PROC: 3E033VJ Introduction of Other Hormone into Peripheral Vein, Percutaneous Approach (ICD-10-PCS; 2021-06-16)
PROC: 10907ZC Drainage of Amniotic Fluid, Therapeutic from Products of Conception, Via Natural or Artificial Opening (ICD-10-PCS; 2021-06-16)
PROC: 3E0R3BZ Introduction of Anesthetic Agent into Spinal Canal, Percutaneous Approach (ICD-10-PCS; 2021-06-16)
PROC: 00HU33Z Insertion of Infusion Device into Spinal Canal, Percutaneous Approach (ICD-10-PCS; 2021-06-16)
DX: O13.4 Gestational [pregnancy-induced] hypertension without significant proteinuria, complicating childbirth (principal); Z37.0 Single live birth; O69.81X0 Labor and delivery complicated by cord around neck, without compression, not applicable or unspecified; Z3A.38 38 weeks gestation of pregnancy; Z20.822 Contact with and (suspected) exposure to COVID-19
CPT/HCPCS: 36415; 80053; 80307; 81001; 82570; 84156; 84550; 85025; 86592; 86850; 86900; 87635; G0378; J2540; J2590; J3010; J7120